=== PATIENT | male | born 1955 | race Caucasian/White ===

== ENCOUNTER 2021-08-24 18:51 | Emergency (ER) | payer OTHER ==
[~2021-08-24] VITALS: Ht 175.2 cm; Wt 104.3 kg
--- NOTE | 2021-08-24 19:02 | ED General ---
General Stated Complaint: DIZZINESS/NAUSEA/WEAKNESS History of Present Illness Date Seen by Provider: August 24, 2021 Time Seen by Provider: 19:02 Initial Comments 65-year-old male with a PMH of HTN/mechanical heart valve, is sent here from urgent care to have a work-up for near syncope/dizziness. Patient has been having dizziness for the past few weeks and was initially thought the cause to be elevated blood pressure. However patient's blood pressure is controlled and he is on 3 blood pressure medications with adjustments in the past week in decreasing his metoprolol. Patient still has dizziness which is on and off, and he is unsure what the actual triggers. He is unsure of movement triggers it. Patient does not seem to be the best historian. Denies fever, respiratory sym ptoms, chest pain, abdominal pain, diarrhea, headaches, neck stiffness, visual disturbances, hearing disturbances. Allergies and Home Medications Allergies Coded Allergies: No Known Drug Allergies (Unverified , 08/24/21) Patient Home Medication List Home Medication List Reviewed: Yes Review of Systems Review of Systems Constitutional: no symptoms reported EENTM: no symptoms reported Respiratory: no symptoms reported Cardiovascular: no symptoms reported Gastrointestinal: no symptoms reported Genitourinary: no symptoms reported Musculoskeletal: no symptoms reported Skin: no symptoms reported Psychiatric/Neurological: See HPI Hematologic/Lymphatic: No Symptoms Reported Immunological/Allergic: no symptoms reported Physical Exam Vital Signs Vital Signs - First Documented 08/24/21 18:56 Temp 36.5 Pulse 56 Resp 18 B/P (MAP) 165/83 (110) Pulse Ox 97 O2 Delivery Room Air Capillary Refill : Height, Weight, BMI Height: '" Weight: lbs. oz. kg; BMI Method: General Appearance: No Apparent Distress HEENT: PERRL/EOMI Neck: Full Range of Motion, Normal Inspection, Non Tender, Supple Respiratory: Chest Non Tender, Lungs Clear, Normal Breath Sounds Cardiovascular: Regular Rate, Rhythm, No Edema, Other (clicking heard due to mechanical valve) Gastrointestinal: Normal Bowel Sounds, Non Tender, Soft Neurologic/Psychiatric: Alert, Oriented x3, No Motor/Sensory Deficits, Normal Mood/Affect, mechanic helper II-XII Norm as Tested Skin: Normal Color Progress/Results/Core Measures Suspected Sepsis SIRS Temperature: Pulse: Respiratory Rate: Laboratory Tests 08/24/21 19:02: White Blood Count 7.1 Blood Pressure / Mean: Laboratory Tests 08/24/21 19:02: Creatinine 1.29, INR Comment 1.6H, Platelet Count 199, Total Bilirubin 0.6 Results/Orders Lab Results Laboratory Tests Test 08/24/21 19:02 08/24/21 19:20 Range/Units White Blood Count 7.1 4.3-11.0 10^3/uL Red Blood Count 4.39 4.30-5.52 10^6/uL Hemoglobin 12.8 L 13.3-17.7 g/dL Hematocrit 38 L 40-54 % Mean Corpuscular Volume 87 80-99 fL Mean Corpuscular Hemoglobin 29 25-34 pg Mean Corpuscular Hemoglobin Concent 33 32-36 g/dL Red Cell Distribution Width 13.3 10.0-14.5 % Platelet Count 199 130-400 10^3/uL Mean Platelet Volume 9.8 9.0-12.2 fL Immature Granulocyte % (Auto) 0 % Neutrophils (%) (Auto) 64 42-75 % Lymphocytes (%) (Auto) 24 12-44 % Monocytes (%) (Auto) 6 0-12 % Eosinophils (%) (Auto) 5 0-10 % Basophils (%) (Auto) 1 0-10 % Neutrophils # (Auto) 4.6 1.8-7.8 10^3/uL Lymphocytes # (Auto) 1.7 1.0-4.0 10^3/uL Monocytes # (Auto) 0.4 0.0-1.0 10^3/uL Eosinophils # (Auto) 0.4 H 0.0-0.3 10^3/uL Basophils # (Auto) 0.0 0.0-0.1 10^3/uL Immature Granulocyte # (Auto) 0.0 0.0-0.1 10^3/uL Prothrombin Time 19.1 H 12.2-14.7 SEC INR Comment 1.6 H 0.8-1.4 Activated Partial Thromboplast Time 35 24-35 SEC D-Dimer 2.47 H 0.00-0.49 UG/ML Sodium Level 134 L 135-145 MMOL/L Potassium Level 4.0 3.6-5.0 MMOL/L Chloride Level 99 98-107 MMOL/L Carbon Dioxide Level 24 21-32 MMOL/L Anion Gap 11 5-14 MMOL/L Blood Urea Nitrogen 17 7-18 MG/DL Creatinine 1.29 0.60-1.30 MG/DL Estimat Glomerular Filtration Rate 62 BUN/Creatinine Ratio 13 Glucose Level 115 H 70-105 MG/DL Calcium Level 9.3 8.5-10.1 MG/DL Corrected Calcium 9.2 8.5-10.1 MG/DL Total Bilirubin 0.6 0.1-1.0 MG/DL Aspartate Amino Transf (AST/SGOT) 24 5-34 U/L Alanine Aminotransferase (ALT/SGPT) 15 0-55 U/L Alkaline Phosphatase 95 40-136 U/L Troponin I < 0.30 <0.30 NG/ML Total Protein 7.2 6.4-8.2 GM/DL Albumin 4.1 3.2-4.5 GM/DL Glucometer 127 H 70-110 MG/DL My Orders Orders - ISHMAEL MEYERS MD Cbc With Automated Diff (08/24/21 19:08) Protime With Inr (08/24/21 19:08) Partial Thromboplastin Time (08/24/21 19:08) Comprehensive Metabolic Panel (08/24/21 19:08) Fibrin Degradation Products (08/24/21 19:08) Troponin I Fs (08/24/21 19:08) Ua Culture If Indicated (08/24/21 19:08) Chest 1 View Ap/Pa Only (08/24/21 19:08) Ekg Tracing (08/24/21 19:08) Nothing By Mouth (08/24/21 Dinner) Accucheck Stat ONCE (08/24/21 19:08) Ed Iv/Invasive Line Start (08/24/21 19:08) Vital Signs Stroke Patient Q15M (08/24/21 19:08) Ct Head Wo-R/O Stroke (08/24/21 19:08) O2 (08/24/21 19:08) Monitor-Rhythm Ecg Trace Only (08/24/21 19:08) Dysphagia Screening Tool Q10MX1 (08/24/21 19:08) Drug Screen Stat (Urine) (08/24/21 19:10) Ct Angio Chest W (08/24/21 19:44) Iohexol Injection (Omnipaque 350 Mg/Ml 1 (08/24/21 20:00) Received Contrast (Hold Metformin- Contr (08/24/21 20:00) Ns (Ivpb) (Sodium Chloride 0.9% Ivpb Bag (08/24/21 20:00) Ondansetron Injection (Zofran Injectio (08/24/21 20:00) Ondansetron Injection (Zofran Injectio (08/24/21 20:00) Medications Given in ED Current Medications Medications Dose Ordered Sig/Una Route Start Time Stop Time Status Last Admin Dose Admin Iohexol 125 ml ONCE ONCE IV 08/24/21 20:00 08/24/21 20:01 DC 08/24/21 19:59 125 ML Ondansetron HCl 4 mg ONCE ONCE IVP 08/24/21 20:00 08/24/21 20:01 DC 08/24/21 20:03 4 MG Sodium Chloride 100 ml ONCE ONCE IV 08/24/21 20:00 08/24/21 20:01 DC 08/24/21 19:59 100 ML Vital Signs/I&O 08/24/21 18:56 Temp 36.5 Pulse 56 Resp 18 B/P (MAP) 165/83 (110) Pulse Ox 97 O2 Delivery Room Air Capillary Refill : Progress Note : Progress Note 1. NEAR SYNCOPE: - CT HEAD:normal - CXR: Enlarged appearance of the aorta which can be seen with aneurysm. This could be further evaluated with a CTA of the chest. (see below) - Troponin/ EKG: unremarkable - Labs unremarkable, normal WBC 2. ELEVATED D-DIMER: AORTIC DISSECTION - See H&P - D-dimer is 2.47 - CTA CHEST: aortic dissection ascending into the aortic arch and descending into mid thoracic aorta, 6cm aneurysm - Discussed with Dr Fraser, CT surgeon, likely chronic dissection due to dizziness for few weeks. Accepted to [facility] and hospitalist is Dr Zaragoza. Pt will go to ICU - Pt agrees with plan. Diagnostic Imaging Diagonstic Imaging: Xray, CT Plain Films/CT/US/NM/MRI: chest Comments [facility]. [place], [place] NAME: OWEN COMBS [facility] REC#: [id number] PT STATUS: REG ER : 1955 PHYSICIAN: ISHMAEL MEYERS MD ADMIT DATE: 08/24/21/ER FS Draft Date of Exam:08/24/21 CT ANGIO CHEST W EXAMINATION: CT angiography of the chest. TECHNIQUE: Contrast enhanced thin section helical images were obtained through the chest with intravenous contrast timed for the optimal opacification of the arterial structures per CTA protocol. Post-processing, reconstructions and interpretation of angiographic images of the vessels was performed. 3D MIP reconstructions were performed and reviewed. All CT scans use one or more of the following dose optimizing techniques: automated exposure control, MA and/or KvP adjustment based on patient size and exam type or iterative reconstruction. HISTORY: Elevated d-dimer. COMPARISON: 08/24/2021. FINDINGS: Vascular: There is a dissection of the thoracic aorta extending from the ascending aorta inferiorly into the descending thoracic aorta above the diaphragm. There is aneurysmal dilatation of the descending thoracic aorta measuring up to 6.0 cm. Branching vessels do originate from the true lumen. No filling defects seen within the pulmonary arteries. Thyroid: The thyroid is normal. Mediastinum: Heart size is normal without significant pericardial effusion. No suspicious lymphadenopathy. Lungs and airways: The lungs are clear without consolidation, pleural effusion or pneumothorax. The airways are normal. Upper abdomen: The subphrenic structures are normal. Musculoskeletal: Degenerative changes of the spine without suspicious osseous lesion or compression fracture. Surgical changes from median sternotomy. IMPRESSION: 1. Dissection of the thoracic aorta extending from the ascending aorta into the aortic arch and mid descending thoracic aorta. 2. Aneurysmal dilatation of the descending thoracic aorta measuring up to 6 cm. Critical finding. Results communicated to Dr. Meyers by Dr. Ty Collins at 8:29 PM on 08/24/2021. Dictated on workstation # [id number] Dict: 08/24/212024 Trans: 08/24/212030 [facility] [id number] [facility], [place] NAME: OWEN COMBS MED REC#: [id number] PT STATUS: REG ER : 1955 PHYSICIAN: ISHMAEL MEYERS MD ADMIT DATE: 08/24/21/ER FS Draft Date of Exam:08/24/21 CHEST 1 VIEW AP/PA ONLY EXAMINATION: Chest 1 view. HISTORY: Near syncope. COMPARISON: None available. FINDINGS: Heart size is enlarged. Enlarged appearance of the aortic arch which can be seen with aneurysm. Surgical changes from median sternotomy and valve repair. The lungs are clear without consolidation, pleural effusion or pneumothorax. The osseous structures are intact. IMPRESSION: 1. No acute radiographic abnormality in the chest. 2. Enlarged appearance of the aorta which can be seen with aneurysm. This could be further evaluated with a CTA of the chest if there is clinical concern. Dictated on workstation # [id number] Dict: 08/24/211935 Trans: 08/24/211938 [facility] [id number] Interpreted by: CARLOS COLLINS DO Electronically signed by: Departure Communication (Admissions) Time/Spoke to Admitting Phy: 20:48 Dr Zaragoza Time/Spoke to Consulting Phy: 20:30 Dr Fraser Impression Primary Impression: Aortic dissection Qualified Codes: I71.01 - Dissection of thoracic aorta Disposition: XFER SHT-TRM HOSP Condition: Stable Admissions Decision to Admit Reason: Admit from ER (General) Decision to Admit/Date: August 24, 2021 Time/Decision to Admit Time: 20:20 Transfer Transfer Reason: Exceeds level of care Time Spoke to Accepting Phy: 20:30 Transfer Progress Notes Spoke with CT surgeon: Dr Fraser, accepted to [facility], accepting hospitalist is Dr Zaragoza Transfer Facility: [facility] Method of Transfer: Air Departure-Patient Inst. Referrals: NO,LOCAL PHYSICIAN (PCP/Family) Primary Care Physician ISHMAEL MEYERS MD August 24, 2021 19:02
[2021-08-24 19:14] LABS: BASOPHILS % (AUTO) 1 % (0-10); EOSINOPHILS # (AUTO) 0.4 10^3/uL (0.0-0.3); EOSINOPHILS % (AUTO) 5 % (0-10); HEMATOCRIT 38 % (40-54); HEMOGLOBIN 12.8 g/dL (13.3-17.7); LYMPHOCYTES # (AUTO) 1.7 10^3/uL (1.0-4.0); LYMPHOCYTES % (AUTO) 24 % (12-44); MEAN CORPUSCULAR HEMOGLOBIN 29 pg (25-34); MEAN CORPUSCULAR HGB CONC 33 g/dL (32-36); MEAN CORPUSCULAR VOLUME 87 fL (80-99); MEAN PLATELET VOLUME 9.8 fL (9.0-12.2); MONOCYTES # (AUTO) 0.4 10^3/uL (0.0-1.0); MONOCYTES % (AUTO) 6 % (0-12); NEUTROPHILS # (AUTO) 4.6 10^3/uL (1.8-7.8); NEUTROPHILS % (AUTO) 64 % (42-75); PLATELET COUNT 199 10^3/uL (130-400); WHITE BLOOD COUNT 7.1 10^3/uL (4.3-11.0)
[2021-08-24 19:18] LABS: INR 1.6 (0.8-1.4); PROTHROMBIN TIME PATIENT 19.1 SEC (12.2-14.7)
[2021-08-24 19:25] LABS: FIBRIN DEGRADATION PRODUCTS 2.47 UG/ML (0.00-0.49)
[2021-08-24 19:26] LABS: BUN/CREATININE RATIO 13; CALCIUM 9.3 MG/DL (8.5-10.1); CARBON DIOXIDE 24 MMOL/L (21-32); CHLORIDE 99 MMOL/L (98-107); CREATININE SERUM 1.29 MG/DL (0.60-1.30); GFR ESTIMATED 62; GLUCOSE 115 MG/DL (70-105); SODIUM 134 MMOL/L (135-145)
[2021-08-24 19:27] LABS: ALANINE AMINOTRANSFERASE 15 U/L (0-55); ALBUMIN 4.1 GM/DL (3.2-4.5); ALKALINE PHOSPHATASE 95 U/L (40-136); BILIRUBIN,TOTAL 0.6 MG/DL (0.1-1.0); TOTAL PROTEIN 7.2 GM/DL (6.4-8.2)
--- NOTE | 2021-08-24 19:39 | Diagnostic Imaging Report ---
EXAMINATION: Chest 1 view. HISTORY: Near syncope. COMPARISON: None available. FINDINGS: Heart size is enlarged. Enlarged appearance of the aortic arch which can be seen with aneurysm. Surgical changes from median sternotomy and valve repair. The lungs are clear without consolidation, pleural effusion or pneumothorax. The osseous structures are intact. IMPRESSION: 1. No acute radiographic abnormality in the chest. 2. Enlarged appearance of the aorta which can be seen with aneurysm. This could be further evaluated with a CTA of the chest if there is clinical concern. Dictated by: Dictated on workstation # [id number]
--- NOTE | 2021-08-24 19:41 | Diagnostic Imaging Report ---
EXAMINATION: CT head without contrast. TECHNIQUE: Multiple contiguous axial images were obtained through the brain without the use of intravenous contrast. All CT scans use one or more of the following dose optimizing techniques: automated exposure control, MA and/or KvP adjustment based on patient size and exam type or iterative reconstruction. HISTORY: Dizziness. COMPARISON: None available. FINDINGS: Mild diffuse cerebral volume loss with proportional enlargement of the ventricles and sulci. Mild hypodensities throughout the supratentorial white matter of both cerebral hemispheres. No acute intracranial hemorrhage or abnormal extra-axial fluid collections are present. Calcification of the intracranial ICAs. No hyperdense vessel. The calvarium is intact. The mastoid air cells are clear. The visualized paranasal sinuses are clear. The orbits are normal. IMPRESSION: 1. No acute intracranial abnormality. 2. Chronic microangiopathy and volume loss. Results communicated to Dr. Meyers by Dr. Ty Hammond at 7:35 PM on 08/24/2021. Dictated by: Dictated on workstation # [id number]
[2021-08-24] MEDS ORDERED: IOHEXOL 350 MG/ML 150 ML (OMNIPAQUE 350) VIAL IV ONE (20:00)
[2021-08-24] MEDS ORDERED: ONDANSETRON 4 MG/2 ML (SDV) Z0FRAN ONE (20:00)
[2021-08-24] MEDS ORDERED: HOLD METFORMIN - RECEIVED CONTRAST 20 ML VIAL IV SCH (20:00)
[2021-08-24] MEDS ORDERED: NS 100 ML (IVPB) BAG IV ONE (20:00)
[2021-08-24] MEDS ORDERED: ONDANSETRON 4 MG/2 ML (SDV) Z0FRAN IVP ONE (20:00)
--- NOTE | 2021-08-24 20:32 | Diagnostic Imaging Report ---
EXAMINATION: CT angiography of the chest. TECHNIQUE: Contrast enhanced thin section helical images were obtained through the chest with intravenous contrast timed for the optimal opacification of the arterial structures per CTA protocol. Post-processing, reconstructions and interpretation of angiographic images of the vessels was performed. 3D MIP reconstructions were performed and reviewed. All CT scans use one or more of the following dose optimizing techniques: automated exposure control, MA and/or KvP adjustment based on patient size and exam type or iterative reconstruction. HISTORY: Elevated d-dimer. COMPARISON: 08/24/2021. FINDINGS: Vascular: There is a dissection of the thoracic aorta extending from the ascending aorta inferiorly into the descending thoracic aorta above the diaphragm. There is aneurysmal dilatation of the descending thoracic aorta measuring up to 6.0 cm. Branching vessels do originate from the true lumen. No filling defects seen within the pulmonary arteries. Thyroid: The thyroid is normal. Mediastinum: Heart size is normal without significant pericardial effusion. No suspicious lymphadenopathy. Lungs and airways: The lungs are clear without consolidation, pleural effusion or pneumothorax. The airways are normal. Upper abdomen: The subphrenic structures are normal. Musculoskeletal: Degenerative changes of the spine without suspicious osseous lesion or compression fracture. Surgical changes from median sternotomy. IMPRESSION: 1. Dissection of the thoracic aorta extending from the ascending aorta into the aortic arch and mid descending thoracic aorta. 2. Aneurysmal dilatation of the descending thoracic aorta measuring up to 6 cm. Critical finding. Results communicated to Dr. Meyers by Dr. Ty Hammond at 8:29 PM on 08/24/2021. Dictated by: Dictated on workstation # [id number]
[2021-08-24 21:11] VITALS: BP 161/105
== END 2021-08-24 21:30 | disposition short-term general hospital (02) ==
LOC: ER FS 18:55
DX: I71.01 Dissection of thoracic aorta (principal); R55 Syncope and collapse; I10 Essential (primary) hypertension; Z79.899 Other long term (current) drug therapy
CPT/HCPCS: 36415; 70450; 71045; 71275; 80053; 82947; 84484; 85025; 85379; 85610; 85730; 93005; 93041; Q9967